=== PATIENT | female | born 1960 | race Two or more races ===

== ENCOUNTER 2024-07-11 14:39 | Emergency (ER) | payer BC, SELFPAY ==
[2024-07-11 14:40] VITALS: BP 127/75
[2024-07-11 16:32] VITALS: BMI 25.8
[2024-07-11 16:35] LABS: Hematocrit 35.5 % (37.0-47.0); Hemoglobin 12.9 g/dL (12.0-16.0); Mean Corp Hgb Conc. 36.3 g/dL (33.0-37.0); Mean Corpuscular Hgb 30.1 pg (27.0-31.0); Mean Corpuscular Volume 82.9 fL (81.0-99.0); Mean Platelet Volume 10.5 fL (7.4-10.4); Platelet Count 199 10^3/uL (130-400); Red Blood Cell Count 4.28 10^6/uL (4.20-5.40); Red Cell Dist. Width 13.4 % (11.5-14.5); White Blood Cell Count 10.6 10^3/uL (4.8-10.8)
[2024-07-11] MEDS: TYLENOL 650 MG PO (16:42)
[2024-07-11] MEDS: MOTRIN 600 MG PO (16:42)
[2024-07-11] MEDS: NSS 1000 IV (16:43)
[2024-07-11 17:05] LABS: % Basophils 0.8 % (0-2); % Eosinophils 0.1 % (0-6); % Immature Granulocytes 1.2 % (0-0.5); % Lymphocytes 5.2 % (20.5-51.1); % Monocytes 4.3 % (1.7-9.3); % Neutrophils 88.4 % (42.2-75.2); Absolute Basophils 0.1 10^3/uL (0-0.2); Absolute Immature Granulocytes 0.1 10^3/uL (0-0.05); Absolute Lymphocytes 0.6 10^3/uL (1.2-3.4); Absolute Monocytes 0.5 10^3/uL (0.1-0.6); Absolute Neutrophils 9.4 10^3/uL (1.4-6.5); Nucleated Red Blood Cells % 0 %
[2024-07-11 17:08] LABS: Blood Urea Nitrogen 17 mg/dl (7-17); Calcium 9.1 mg/dl (8.4-10.2); Carbon Dioxide 24 mmol/L (22-30); Chloride 99 mmol/L (98-107); Estimated Creatinine Clearance 61 ml/min; Glucose 105 mg/dl (70-99); Sodium 136 mmol/L (135-145); eGFR > 60.00
--- NOTE | 2024-07-11 17:22 | ED.GENMED ---
History of Present Illness
General
Chief Complaint: Cold/Flu/URI Symptoms
Time Seen by Provider: 07/11/24 15:48
History of Present Illness
History of Present Illness:
64-year-old female with history of hyperlipidemia presents to the emergency department for evaluation of fever and persistent coughing for the past 6 days. Was seen in urgent care 2 days ago and had negative COVID and flu test, also took a COVID
test at home this morning all of which were negative. She reports nausea without vomiting or diarrhea. Denies any nasal congestion or sore throat.
Review of Systems
Review of Systems
Allergies reviewed?: Yes
All Other Systems: ROS reviewed and negative except as documented in HPI and ROS
Phy Exam
Physical Exam
Physical Exam:
GEN: Well appearing, NAD, WDWN
Eyes: PERRLA, EOMs intact, no scleral icterus
HENT: NCAT, oral mucosa moist
Lungs: Normal respiratory effort, bibasilar crackles
Cardiac: RRR, no M/R/G, no peripheral edema. Radial pulses 2+ bilat
Neuro: AO x 3
MSK: No gross deformity or ecchymosis. No edema. No digital clubbing
Skin: No rashes, petechiae. Normal color, no pallor or jaundice.
Psych: Calm, cooperative, proper hygiene
Course
Orders/Labs/Results
Orders:
Orders
07/11/24 14:44
Electrocardiogram (*1) Urgent
Reason for Study: Chest Pain
EKG- Treatment ONCE
07/11/24 16:07
0.9% Sodium Chloride 1000 ml [Nss] 1,000 ml IV BOLUS
07/11/24 16:11
Basic Metabolic Panel Urgent
Complete Blood Count/With Diff Urgent
07/11/24 16:34
Acetaminophen [Tylenol] 650 mg PO NOW STA
Ibuprofen [Motrin] 600 mg PO NOW STA
08/25/24 17:19
Comprehensive Metabolic Panel Urgent
07/11/24 17:28
Urinalysis Reflex To Culture Urgent
Date Specimen was Collected: 07/11/24
Time Specimen was Collected: 17:25
Urine Microscopic Reflex Cult Urgent
Urine Culture Urgent
ANNABELLE Source: U
Specimen Description:
Date Specimen was Collected: 07/11/24
Time Specimen was Collected: 17:25
Abnormal Lab Results
07/11/24 07/11/24 07/11/24
16:11 17:19 17:28
Hct 35.5 L %
(37.0-47.0)
MPV 10.5 H fL
(7.4-10.4)
Abs Immat Gran (auto) 0.1 H 10^3/uL
(0-0.05)
Absolute Neuts (auto) 9.4 H 10^3/uL
(1.4-6.5)
Absolute Lymphs (auto) 0.6 L 10^3/uL
(1.2-3.4)
Immature Gran % 1.2 H %
(0-0.5)
Neutrophils % 88.4 H %
(42.2-75.2)
Lymphocytes % 5.2 L %
(20.5-51.1)
Potassium 3.4 L mmol/L
(3.5-5.1)
Glucose 105 H mg/dl
(70-99)
Calcium 8.2 L mg/dl
(8.4-10.2)
AST 37 H U/L
(14-36)
Alkaline Phosphatase 133 H U/L
(38-126)
Total Protein 5.5 L g/dl
(6.3-8.2)
Albumin 3.1 L g/dl
(3.5-5.0)
Ur Occult Blood Reflex 3+ A
(Negative)
Leukocyte Esterase Rfl 2+ A
(Negative)
Urine Albumin (Reflex) 1+ A
(Neg - Trace)
07/11/24 16:11
07/11/24 17:19
Vital Signs
Initial and Last Documented VS:
Initial Vital Signs
Temp Pulse Resp BP Pulse Ox
99.2 F 94 16 127/75 98
07/11/24 14:40 07/11/24 14:40 07/11/24 14:40 07/11/24 14:40 07/11/24 14:40
Last Documented Vital Signs
Temp Pulse Resp BP Pulse Ox
100.5 F H 88 18 126/74 99
07/11/24 17:35 07/11/24 17:35 07/11/24 17:35 07/11/24 17:35 07/11/24 17:35
MDM/Problems Addressed
MDM/Problems Addressed:
Exam and history consistent with acute pneumonia, will treat for atypicals given recent community rise and mycoplasma pneumonia. Given her persistent fever will also cover for typical pathogens with high-dose amoxicillin. She had a chest x-ray
performed at urgent care 2 days ago thus I do not feel there is any indication for reimaging today as this will not [employer]
*Critical Care Note
Total Time (30-74mins, 75-104mins- exclusive of procedures): Not Applicable
ED Attending Note
-
Portions of this chart may have been created with voice recognition software.� Occasional wrong word or��sound alike� substitutions may have occurred due to the inherent limitations of voice recognition software.
Discharge Plan
Departure
Patient Disposition: Home (Routine Discharge)
Date of Disposition: 07/11/24
Time of Disposition: 17:22
Patient with high blood pressure during this ER visit?: No
Discharge Problem:
Community acquired pneumonia
Instructions: Pneumonia, Adult (DC)
Prescriptions:
New
amoxicillin 500 mg tablet
2,000 mg PO Q12H 5 Days Qty: 40 0RF
azithromycin [Zithromax] 250 mg tablet
250 mg PO DAILY Qty: 6 0RF
Rx Instructions:
500mg PO qd x 1d, then 250mg PO qd x 4d
No Action
aspirin [Ecotrin Low Strength] 81 mg Tablet,Delayed Release (Dr/Ec)
81 mg PO DAILY
simvastatin 20 mg Tablet
20 mg PO DAILY
Referrals:
NONE,* [Family Provider] -
Interventions
Interventions:
*Risk Screen - Suicide Last Done: 07/11/24 18:37
*General Assessment Last Done: 07/11/24 18:38
*Neglect/Abuse Screening Last Done: 07/11/24 18:37
ED- Fall Risk Assessment Last Done: 07/11/24 18:38
*ED COVID-19 Vaccine History Last Done: 07/11/24 18:37
*Nursing Disposition Last Done: 07/11/24 18:38
ED- Pulmonary Assessment Last Done: 07/11/24 18:38
Discharge Date and Time
Discharge Date/Time: 07/11/24 18:38
Print Language: KHMER
[2024-07-11 17:34] LABS: Urine Albumin 1+ (Neg - Trace); Urine Bilirubin Negative (Negative); Urine Character Slightly Cloudy (Clear); Urine Color Amber; Urine Glucose Negative (Negative); Urine Ketone Negative (Negative); Urine Leukocyte 2+ (Negative); Urine Nitrite Negative (Negative); Urine Occult Blood 3+ (Negative); Urine Specific Gravity 1.015 (<1.030); Urine Urobilinogen 1+ (Neg - 1+)
[2024-07-11 17:35] VITALS: BP 126/74
[2024-07-11 17:41] LABS: Urine Hyaline Cast 0-2 /LPF (0-2); Urine Mucus Few
[2024-07-11 17:43] LABS: Urine Red Blood Cell 0-2 /HPF (0-2)
[2024-07-11 17:47] LABS: ALT (SGPT) 35 U/L (0-35); AST (SGOT) 37 U/L (14-36); Albumin 3.1 g/dl (3.5-5.0); Alkaline Phosphatase 133 U/L (38-126); Blood Urea Nitrogen 16 mg/dl (7-17); Calcium 8.2 mg/dl (8.4-10.2); Carbon Dioxide 22 mmol/L (22-30); Chloride 102 mmol/L (98-107); Estimated Creatinine Clearance 61 ml/min; Glucose 98 mg/dl (70-99); Potassium 3.4 mmol/L (3.5-5.1); Sodium 135 mmol/L (135-145); Total Protein 5.5 g/dl (6.3-8.2); eGFR > 60.00
== END 2024-07-11 18:38 | disposition home or self-care (01) ==
LOC: EMR 14:39
PROVIDERS: Physician Assistant; EMERGENCY PHYSICIAN Emergency Medicine
DX: J18.9 Pneumonia, unspecified organism (principal); E78.5 Hyperlipidemia, unspecified
CPT/HCPCS: 99284; 96360; 80048; 80053; 81003; 81015; 85025; 87086; 93005